=== PATIENT | female | born 1965 | race Hispanic/Latino ===

== ENCOUNTER 2025-02-11 06:56 | Observation (INO) | payer OTHER ==
[2025-02-09 11:56] LABS: IMMATURE GRANULOCYTE ABSOLUTE 0.02 K/uL (0-1); NUCLEATED RED BLOOD CELLS 0.0 % (0.0-0.19); PLATELET COUNT (AUTO) 297 K/uL (130-400); RED BLOOD CELL COUNT(AUTO) 4.70 MIL/uL (4.00-5.50); RED CELL DISTRIBUTION WIDTH 13.1 % (11.0-15.5); WHITE BLOOD COUNT (AUTO) 9.6 K/uL (4.8-10.8)
[2025-02-09 12:00] LABS: APPEARANCE,URINE CLEAR (CLEAR); GLUCOSE, URINE (UA) NEGATIVE (NEGATIVE); LEUKOCYTE ESTERASE ,URINE 250 Leu/uL (NEGATIVE); NITRATE,URINE NEGATIVE (NEGATIVE); OCCULT BLOOD,URINE NEGATIVE (NEGATIVE)
[2025-02-09 12:12] LABS: ADD UA MICROSCOPIC YES
[2025-02-09 12:20] LABS: NON-SQUAMOUS EPITHELIAL CELL <1 /HPF (0-2); SQUAMOUS EPITHELIAL CELL,UR FEW /HPF (0-2)
[2025-02-09 12:24] VITALS: BP 129/79; PULSE 64; RESP 17; TEMP 97.3
[2025-02-09 12:38] LABS: INR 1.06 (0.85-1.15)
--- NOTE | 2025-02-10 16:45 | NUR ---
RE: LABS REPORTED UA/URINE CX RESULTS (<= 10,000 CFU) TO DR MONTERO. NO NEW ORDERS RECEIVED.
[~2025-02-11] VITALS: Ht 162.6 cm; Wt 103.6 kg
[2025-02-11] VITALS (26 sets, daily range): BP systolic 112–160; BP diastolic 62–94; PULSE 57–87; RESP 15–18; TEMP 97.1–98.3; O2SAT 97
[~2025-02-11 06:56] MED LIST: ASPI-1197 PO; BUPR-49 PO; CARB-305 OP; ERGO500093 PO; KETO-99 OP; LEVO150C5 PO; LISI10TA24 PO; LORA10TA7 PO; OMEP10CA5 PO
[2025-02-11] MEDS: LACTATED RINGERS 1000ML 1,000 ML IV ONE (07:02)
[2025-02-11] MEDS ORDERED: TRANEXAMIC ACID 1000MG/10ML ONE (07:29)
[2025-02-11] MEDS ORDERED: VANCOMYCIN 500MG+NS 100ML 100 ML IV ONE (07:29)
[2025-02-11] MEDS ORDERED: LIDOCAINE PF 100MG/5ML (2%) SYRINGE 5ML ONE (07:37)
[2025-02-11] MEDS ORDERED: MIDAZOLAM HCL 1 MG/ML 2ML VIAL ONE (07:38)
[2025-02-11] MEDS ORDERED: 0.9%NACL 10ML VIAL ONE (07:39)
--- NOTE | 2025-02-11 07:55 | OP ---
Operative Note: DATE OF PROCEDURE: 02/11/25 SURGEON: PHOEBE MONTERO MD SPINNER FRAME: [Lora Anderson and Sahara Ron, MANAGER CORPORATE COMMUNICATIONS's] ANESTHESIA: [General anesthesia plus regional block] ANESTHESIOLOGIST/WATER VALVE MECHANIC: [Isaac Gilbert WATER VALVE MECHANIC] PREOPERATIVE DIAGNOSIS: [Right knee osteoarthritis] POSTOPERATIVE DIAGNOSIS: [Same] IMPLANTS: [BIOMET VANGUARD. femur 67.5 Left PS, Tibia 75 Fix cruciate. Patella 34 X 9 asymmetric] PROCEDURE: [Right total knee arthroplasty] ESTIMATED BLOOD LOSS: [100 mL] INDICATIONS: [59-year-old female with a history of severe arthrosis of the right knee that has a longer responded to conservative treatment the patient is being admitted for a right total knee arthroplasty. Procedure understood, risks, benefits and possible complications and she agreed signed the consent form.] DESCRIPTION OF PROCEDURE: [After adequate general anesthesia was achieved and regional block obtained the left lower extremity was prepped and draped in the usual manner previous placement of the tourniquet in the proximal thigh. The extremity was then elevated and exsanguinated with an Esmarch bandage and the tourniquet inflated to 250 mmHg the Esmarch band been then removed. With the knee in flexion a longitudinal incision was then made in the anterior aspect through the skin followed by dissection of the subcutaneous tissue. A bone infusion needle was then inserted just medial to the tibial tuberosity and through this needle we injected into the bone a solution of normal saline 50 mL mixed with 500 mg of vancomycin. The needle was removed. A paramedian approach was then made with the Bovie cautery cutting through the quadriceps tendon, medial patellar retinaculum and patellar tendon retinaculum. The retropatellar tendon fat was then excised and the soft tissue elements of the tibia were elevated subperiosteally and retractors were applied medially and laterally . The anterior and posterior cruciate ligaments were resected. With the use of a drill a starting hole was made in the distal femur entering the intramedullary canal and then after removal of the drill an intramedullary guide was inserted with a 5 degree valgus block that touched the distal femur and to this the distal femoral cutting guide was then applied anteriorly and was secured to the distal femur with the use of pins. The intramedullary guide was then removed and with the use of the oscillating saw we proceeded to resect the distal femur removing the fragments and the guide. The femoral sizer was then applied distally and drill holes were made removing the sizer and the 4-in-1 cutting block was then inserted and the anterior, posterior and chamfer cuts were made removing the fragments and the block. The PS cutting guide was then inserted and the intercondylar cut was made removing the fragment and the guide. The posterior cruciate ligament retractor was then inserted posterior to the tibia and this was brought forward proceeding then to apply the external tibial alignment guide and secured the proximal cutting guide to the tibia with the use of pins. With the use of the oscillating saw the proximal cut to the tibia tibia was made. The bone fragment was removed and the trial tibia plate was chosen. At this point the menisci were removed sharply and with the use of the curved osteotome the posterior osteophytes of the femur were removed. The trial components were then inserted at the femur and tibia with a trial tibial liner bringing the knee into extension noticing that the patient had a very stable knee in flexion, extension and with valgus and varus stress. The knee was maintained in extension and the patella was then addressed proceeding to measure its thickness and then with the use of the oscillating saw we removed 9 mm from the articular surface and restored the height with application of a trial component after 3 peg holes were made. The patellofemoral ligament was removed and then the patellofemoral tracking was checked noticing to be lateralized and a lateral release was done, bringing the tracking back to normal. At this moment all the components were removed, the tibia after the metaphyseal defect was created and while cement was being mixed on the back table we proceeded to irrigate the joint with antibiotic solution and then cover the entry to the femoral canal with a bone plug. Once the cement was ready we proceeded to apply it first to the tibia surface inserting the final component and then to the femoral surface and inserted the final component removing the excess cement and then applying a trial liner bringing the knee into extension for compression. Then we proceeded to irrigate the patella surface and dried it applying then bone cement and the final patellar component was inserted and was secured with application of a clamp. The joint was irrigated with a warm diluted Betadine solution while the cement dried followed by irrigation with antibiotic solution. The trial liner was removed as well as the patellar clamp and we proceeded then to irrigate the posterior aspect of the joint to remove all the remaining debris and the final tibial liner was inserted and locked against the tibia. The range of motion was checked and noticed to be adequate with full extension and flexion, no laxity in valgus or varus stress and with adequate patellofemoral tracking. The patient had no anterior or posterior drawer. The tourniquet was then deflated and this was followed by hemostasis and the wound was then closed with approximation of the quadriceps tendon, patellar retinaculum and patellar tendon retinaculum with #1 Vicryl close stitches alternating with #1 Ethibond stitches, and closure of the subcutaneous tissue with 2-0 Monocryl inverted stit ches and the skin was closed with 3-0 Monocryl subcuticularly. The wound was covered with a suction dressing followed by application of an Jluis bandage for compression and the drapes were then removed transferring the patient to the hospital bed and taken to recovery room for follow-up by anesthesia. There were no complications during the procedure.] PHOEBE MONTERO MD Feb 11, 2025 07:54
[2025-02-11] MEDS: TRANEXAMIC ACID 1000MG/10ML IV ONE (08:12)
[2025-02-11] MEDS ORDERED: PoTASSium chloRIDE 20MEQ ER 20 MEQ ERTAB PO PRN (09:00)
[2025-02-11] MEDS ORDERED: PoTASSium chl 10% ELIXIR 20MEQ 20 MEQ/15 ML UDCUP PO PRN (09:00)
[2025-02-11] MEDS ORDERED: CALCIUM CARB 500MG PO PRN (09:00)
[2025-02-11] MEDS ORDERED: FERROUS FUMARATE 324 MG TABLET PO PRN (09:00)
[2025-02-11] MEDS ORDERED: NEOSTIGMINE METHYLSULFATE 1MG/ML IV ONE (10:06)
[2025-02-11] MEDS ORDERED: GLYCOPYRROLATE 0.2 MG/ML 5 ML VIAL ONE (10:06)
[2025-02-11] MEDS: TRANEXAMIC ACID 1000MG/10ML ONE (10:51)
--- NOTE | 2025-02-11 12:00 | NUR ---
PATIENT ARRIVED AT 1135 , AWAKE ALERT, C/O OF PAIN TO LEFT KNEE SCORE OF 10 , PAIN MEDICATION GIVEN PER MD PRN ORDER , ICE APPLIED TO AREA, PHYSICAL THERAPY WAS NOTIFIED OF ARRIVAL . CALL LIGHT WITHIN REACH , FAMILY MEMBER AT BEDSIDE
--- NOTE | 2025-02-11 14:00 | NUR ---
PT approached patient for evaluation. Pt had ice but no SCD machine. PT provided. pt voided in BSC and is a max transfer at time of eval, unable to take steps even to chair. Nurse aware.
[2025-02-11] MEDS: FAMOTIDINE 20MG TAB PO SCH (14:17)
[2025-02-11] MEDS: 0.9%NACL 1000ML 1,000 ML IV SCH (14:18)
--- NOTE | 2025-02-11 16:30 | NUR ---
Ortho Coordinator: Teaching regarding DVT and pneumonia prevention, pain expectations and pain management. Patient in bed, B SCD sleeves in place and functioning. Incentive spirometer on bedside tray. Patient return demonstrated proper use of incentive spirometer and verbalized proper frequency of use. Patient return demonstrated foot flexion and extension exercises. Rationale provided for both exercises. Patient had surgery in July on other knee. Pain management strategy reviewed. Patient encouraged to perform self pain evaluations. Patient reminded she must call out for medication using the numeric pain score and type of pain, rationale provided. Set expectations for shower tomorrow, rationale provided. Patient electing to discharge home with home health. Reviewed home health process, next steps. Questions answered. 1640 Report to primary care team, strategies discussed.
--- NOTE | 2025-02-11 19:34 | NUR ---
PER PATIENT STATED REQUESTED ON USE OF PURWICK FOR TONIGHT , DISCUSSED THE USE OF PURWICK WITH PHYSICAL THERAPY AND ORTHO COORDINATOR PER PATIENT . PER PT NOTES AND CURRENT STATUS OF LEG UNDER AND UNABLE TO AMBULATE DUE TO LEG ASLEEP DUE TO BLOCK , PATIENT NOT SAFE TO GET UP AN AMBULATE TO BATHROOM WITH ASSISTANCE AT THIS TIME . PATIENT WITH PURWICK TEMPORARY AT THIS TIME
[2025-02-11] MEDS: ASPIRIN 81 MG EC TAB PO SCH (20:52)
[2025-02-12 03:09] VITALS: BP 111/64; PULSE 67; RESP 20; TEMP 98.6
[2025-02-12 03:52] LABS: NUCLEATED RED BLOOD CELLS 0.0 % (0.0-0.19); PLATELET COUNT (AUTO) 275.0 K/uL (130-400); RED BLOOD CELL COUNT(AUTO) 4.09 MIL/uL (4.00-5.50); RED CELL DISTRIBUTION WIDTH 13.0 % (11.0-15.5); WHITE BLOOD COUNT (AUTO) 13.7 K/uL (4.8-10.8)
[2025-02-12 04:05] LABS: CREATININE 0.7 mg/dL (0.5-1.0); GLOMERULAR FILTR. RATE CALC 101.0 mL/min (>90); GLUCOSE,RANDOM 126.0 mg/dL (70-105); SODIUM SERUM 140.0 mmol/L (136-145); UREA NITROGEN, BLOOD 11.0 mg/dL (7-18)
[2025-02-12 08:00] VITALS: BP 108/57; PULSE 50; RESP 16; TEMP 98.2
--- NOTE | 2025-02-12 11:04 | PN ---
Ortho postop day one. This morning the patient is awake alert and oriented. Reporting adequate pain control. No acute distress. Stated that she did not walk yesterday because her leg was numb but is better this morning. Vital signs have been stable. Afebrile. Voiding on her own without difficulty. She has already passing gas but yet to have BM. Laboratory results reviewed. Operative findings discussed with the patient. Reinforced incentive spirometry. The Jluis bandage has been removed and the PICCO is flashing green. She has bilateral lower extremity SCD sleeves on. Ice to the extremity. She is pending physical therapy this morning. The patient has changed her mind from doing home health or skilled nurse facility and is wanting to do outpatient physical therapy at [facility]. I have discussed with the patient that we will go ahead and make arrangements to follow up with her in one week in our clinic to remove her dressing and we will go ahead and submit order for outpatient physical therapy at [facility]. The patient can likely be discharged after afternoon PT. she is going to need a prescription for a bedside commode. Patient already has a standard walker from previous surgery. Assessment: Status post left total knee arthroplasty. Plan: Continue with Dr. Larson TKA protocol and discharge planning. Follow up in clinic 1 week for dressing removal Vitals/Labs Vital Signs Date Time Temp Pulse Resp B/P (MAP) Pulse Ox O2 Delivery O2 Flow Rate FiO2 02/12/25 08:00 Room Air* 0 21 02/12/25 08:00 98.2 50 16 108/57 97 Laboratory Tests 02/12/25 03:20 Medications Current Medications Cefazolin Sodium 2 gm STK-MED ONCE .ROUTE; Start 02/11/25 at 07:02; Stop 02/11/25 at 07:02; Status DC Lactated Ringer's 1,000 ml @ As Directed STK-MED ONCE IV; Start 02/11/25 at 07:02; Stop 02/11/25 at 07:03; Status DC Tranexamic Acid 1,000 mg STK-MED ONCE .ROUTE; Start 02/11/25 at 07:29; Stop 02/11/25 at 07:29; Status DC Cefazolin Sodium 1 gm STK-MED ONCE .ROUTE; Start 02/11/25 at 07:29; Stop 02/11/25 at 07:29; Status DC Vancomycin HCl 100 ml @ As Directed STK-MED ONCE IV; Start 02/11/25 at 07:29; Stop 02/11/25 at 07:29; Status DC Lidocaine HCl 100 mg STK-MED ONCE .ROUTE; Start 02/11/25 at 07:37; Stop 02/11/25 at 07:38; Status DC Propofol 200 mg STK-MED ONCE IV; Start 02/11/25 at 07:38; Stop 02/11/25 at 07:38; Status DC Midazolam HCl 2 mg STK-MED ONCE .ROUTE; Start 02/11/25 at 07:38; Stop 02/11/25 at 07:38; Status DC Rocuronium [place] 50 mg STK-MED ONCE .ROUTE; Start 02/11/25 at 07:38; Stop 02/11/25 at 07:38; Status DC Fentanyl Citrate 100 mcg STK-MED ONCE .ROUTE; Start 02/11/25 at 07:38; Stop 02/11/25 at 07:39; Status DC Sodium Chloride 10 ml STK-MED ONCE .ROUTE; Start 02/11/25 at 07:39; Stop 02/11/25 at 07:39; Status DC Ropivacaine 150 mg STK-MED ONCE .ROUTE; Start 02/11/25 at 07:40; Stop 02/11/25 at 07:41; Status DC Ketamine HCl 50 mg STK-MED ONCE .ROUTE; Start 02/11/25 at 08:03; Stop 02/11/25 at 08:03; Status DC Sodium Chloride 1,000 ml @ 100 mls/hr Q10H IV Last administered on 02/11/25at 14:18; Start 02/11/25 at 09:00; Stop 02/12/25 at 08:59; Status DC Polyethylene Glycol 17 gm DAILY PO Last administered on 02/12/25at 08:17; Start 02/11/25 at 09:00; Stop 03/13/25 at 08:59 Bisacodyl 10 mg DAILY PRN RC; Start 02/14/25 at 09:00; Stop 03/16/25 at 08:59 Ketorolac Tromethamine 15 mg Q6H PRN IV Last administered on 02/11/25at 12:47; Start 02/11/25 at 09:00; Stop 02/16/25 at 08:59 Famotidine 20 mg DAILY PO Last administered on 02/12/25at 08:16; Start 02/11/25 at 09:00; Stop 03/13/25 at 08:59 Ferrous Fumarate 324 mg DAILY PRN PO; Start 02/11/25 at 09:00; Stop 03/13/25 at 08:59 Temazepam 15 mg HS PRN PO; Start 02/11/25 at 09:00; Stop 03/13/25 at 08:59 Ondansetron HCl 4 mg Q6H PRN IVP; Start 02/11/25 at 09:00; Stop 03/13/25 at 08:59 Calcium Carbonate 500 mg Q12H PRN PO; Start 02/11/25 at 09:00; Stop 03/13/25 at 08:59 Diphenhydramine HCl 25 mg Q6H PRN IVP; Start 02/11/25 at 09:00; Stop 03/13/25 at 08:59 Cefazolin Sodium 2 gm Q8H IVPB Last administered on 02/11/25at 20:52; Start 02/11/25 at 14:00; Stop 02/11/25 at 22:01; Status DC Potassium Chloride 100 ml @ 100 mls/hr AD PRN IV; Start 02/11/25 at 09:00; Stop 03/13/25 at 08:59 Potassium Chloride 20 meq AD PRN PO; Start 02/11/25 at 09:00; Stop 03/13/25 at 08:59 Potassium Chloride 20 meq AD PRN PO; Start 02/11/25 at 09:00; Stop 03/13/25 at 08:59 Oxycodone HCl 5 mg Q4H PRN PO Last administered on 02/12/25at 08:17; Start 02/11/25 at 09:00; Stop 02/18/25 at 08:59 Oxycodone HCl 10 mg Q4H PRN PO Last administered on 02/11/25at 16:54; Start 02/11/25 at 09:00; Stop 02/18/25 at 08:59 Tramadol HCl 50 mg Q6H PRN PO Last administered on 02/11/25at 14:17; Start 02/11/25 at 09:00; Stop 02/16/25 at 08:59 Acetaminophen 1,000 mg Q8H PO Last administered on 02/12/25at 08:17; Start 02/11/25 at 09:00; Stop 03/13/25 at 08:59 Aspirin 81 mg BID PO Last administered on 02/12/25at 08:16; Start 02/11/25 at 21:00; Stop 03/13/25 at 20:59 Tranexamic Acid 1,000 mg STK-MED ONCE IV Last administered on 02/11/25at 08:12; Start 02/11/25 at 08:12; Stop 02/11/25 at 09:12; Status DC Cefazolin Sodium 3 gm STK-MED ONCE IVPB Last administered on 02/11/25at 08:10; Start 02/11/25 at 08:10; Stop 02/11/25 at 09:12; Status DC Vancomycin HCl 500 mg STK-MED ONCE IJ Last administered on 02/11/25at 08:11; Start 02/11/25 at 08:11; Stop 02/11/25 at 09:12; Status DC Glycopyrrolate 1 mg STK-MED ONCE .ROUTE; Start 02/11/25 at 10:06; Stop 02/11/25 at 10:06; Status DC Neostigmine Methylsulfate 10 mg STK-MED ONCE IV; Start 02/11/25 at 10:06; Stop 02/11/25 at 10:07; Status DC Ketorolac Tromethamine 30 mg STK-MED ONCE .ROUTE; Start 02/11/25 at 10:16; Stop 02/11/25 at 10:16; Status DC Tranexamic Acid 1,000 mg STK-MED ONCE .ROUTE Last administered on 02/11/25at 10:51; Start 02/11/25 at 10:41; Stop 02/11/25 at 10:41; Status DC Fentanyl Citrate 100 mcg STK-MED ONCE .ROUTE Last administered on 02/11/25at 11:05; Start 02/11/25 at 10:52; Stop 02/11/25 at 10:54; Status DC FAIZAN MANRIQUE NP Feb 12, 2025 11:04
--- NOTE | 2025-02-12 11:34 | NUR ---
[facility] CM MET WITH PT THIS MORNING, INITIAL ASSESSMENT DONE. PATIENT IS INDEPENDENT PRIOR TO SURGERY, LIVES AT HOME WITH HER MOTHER, PT STATES SHE TAKES CARE OF HER MOTHER AT HOME. PATIENT HAS A WALKER, ROLLATOR WALKER, BEDSIDE COMMODE, CANE, CPAP THAT SHE DOESN'T USE BECAUSE IT'S UNCOMFORTABLE FOR HER INSTEAD SHE USES NOSE STRIPS, BPM. DENIES ANY OTHER EQUIPMENT/SERVICES. FEELS SAFE TO GO BACK HOME, STILL DRIVE, ARRANGES OWN NEEDS, SISTER ABLE TO ASSIST WITH TRANSPORTATION NECESSARY. DISCUSSED MD RECOMMENDATIONS FOR HOME W/ FOR PT, PT VERBALIZED SHE PREFERS TO GO TO THE [place] FOR OUTPATIENT PT INSTEAD HER HOUSE IS GOING TO BE RENOVATED ANY TIME NOW ONCE SHE RECEIVE [facility] FUNDING, ASKED PT IF HAS TRANPSORTATION TO GO BACK AND FORTH TO [place] FOR OPT PT VERBALIZED YES HER SISTER CAN ASSIST ALSO [facility] HAS TRANSPORTATION AVAILABLE IN CASE NEEDED. CONSENT SIGNED [facility]IV[facility] FOR OUTPATIENT [facility]. DR MONTERO UPDATED, UP TO MD TO DC PT HOME TODAY/TOMORROW. CM SENT REQUEST TO [facility] VIA SECURE FAX AND EMAIL, PENDING [facility] RESPONSE. [facility]. CM TO CONTINUE TO FOLLOW UP. Addendum: 02/12/25 at 1141 by JUANCARLOS JURADO LVN Amended: Links added.
[2025-02-12 12:00] VITALS: BP 107/60; PULSE 68; RESP 16; TEMP 97.8
[2025-02-12 16:00] VITALS: BP 139/77; PULSE 80; RESP 17; TEMP 97.7
--- NOTE | 2025-02-12 16:00 | NUR ---
Ortho Coordinator: Patient working with physical therapy. Teaching deferred.
--- NOTE | 2025-02-12 16:03 | NUR ---
CM NOTE: OPT APPROVED CM RECEIVED CALL FROM [facility], PER [facility] PT ALREADY HAS 15 PRE-APPROVED VISITS FOR OUTPATIENT PT [facility]. DR MONTERO UPDATED. PT SAFE TO DC ONCE MD CLEARED. CM TO CONTINUE TO FOLLOW UP.
[2025-02-12 20:00] VITALS: BP 119/64; PULSE 70; RESP 20; TEMP 97.6; O2SAT 94
[2025-02-13] VITALS: BP 120/67; PULSE 66; RESP 18; TEMP 97.6
[2025-02-13 04:00] VITALS: BP 115/67; PULSE 62; RESP 18; TEMP 97.6
[2025-02-13 08:15] VITALS: BP 132/86; PULSE 62; RESP 18; TEMP 97.9
[2025-02-13 09:50] VITALS: O2SAT 98
[2025-02-13 11:47] VITALS: BP 122/72; PULSE 69; RESP 18; TEMP 97.9
[2025-02-13] MEDS ORDERED: OXYC-38 PO (15:46)
[2025-02-13] MEDS ORDERED: ASPI-1197 PO (15:46)
[2025-02-13 15:50] VITALS: BP 122/72; PULSE 76; RESP 18; TEMP 98
--- NOTE | 2025-02-13 15:56 | DS ---
DISCHARGE SUMMARY [Date of admission: 02/11/2025 Date of discharge: 02/13/2025 Final diagnosis: Left Knee osteoarthritis Surgical procedures: Left total Knee arthroplasty on 02/11/2025 Summary of History and Physical: The patient is a 59 year-old female with history of severe arthrosis to the left knee that has been present for several years and has been treated conservatively with no longer adequate response to treatment. The patient is being admitted for a left total knee arthroplasty. Previous medical history: Hypertension, hypothyroidism, osteoarthritis, GERD Previous surgical history: Left knee meniscal repair, right knee meniscal repair, gastric sleeve, right total knee arthroplasty. Family history: Hypertension, osteoarthritis, cancer of the pancreas breast and kidney as well as long. Diabetes mellitus. Thyroid disorder Social history: Negative for use of tobacco or alcohol. Allergies: NKDA. Review of system: Negative on admission Hospital course: The patient was admitted and taken to the operating room for a total knee arthroplasty, procedure that went uneventful. Postoperatively the patient remained hemodynamically stable and afebrile. The patient received antibiotic and anticoagulation prophylaxis as per protocol. The patient was evaluated by physical therapy and started rehabilitation treatment with ambulation with the use of walker, weightbearing as tolerated, range of motion exercises and bed transfers. The patient was also evaluated by case management and arrangements were made for discharge. The patient tolerated diet well. On postop day #2 all the arrangements were completed and the patient was dismissed. Condition on discharge: Good Disposition: The patient will be dismissed home. Follow-up will be done at the office in one week for removal of the dressing. The patient is to continue with physical therapy and rehabilitation at [facility] which was arranged earlier and be ambulatory with the use of a walker, weightbearing as tolerated. Continue taking pain medication as instructed as well as anticoagulation prophylaxis. Continue with home medications also as instructed and continue with pre admission diet.] PHOEBE MONTERO MD Feb 13, 2025 15:56
--- NOTE | 2025-02-13 17:51 | NUR ---
DISCHARGE PATIENT DISCHARGED. PERIPHERAL IV DISCONTINUED. CATHETER INTACT. DISCHARGE INSTRUCTIONS GIVEN. PATIENT AWARE TO F/U WITH ORTHO CARE 03/03. PATIENT AWARE TO F[facility]U WITH [facility] FOR [facility]. PRESCRIPTIONS FAXED TO PHARMACY. DRESSING CLEAN DRY AND INTACT. PATIENT REPORTS PAIN 07/17. PATIENT TAKEN DOWN BY WHEELCHAIR.
== END 2025-02-13 18:00 | disposition home or self-care (01) ==
LOC: DAH 06:56 → DAHIP 06:57 → DAH 06:57 → 4AH 11:35
PROVIDERS: ADMIT Orthopaedic Surgery; ATTEND Orthopaedic Surgery
DX: M17.12 Unilateral primary osteoarthritis, left knee (principal); M25.562 Pain in left knee; I10 Essential (primary) hypertension; E03.9 Hypothyroidism, unspecified; K21.9 Gastro-esophageal reflux disease without esophagitis; R06.81 Apnea, not elsewhere classified; Z79.899 Other long term (current) drug therapy; Z98.890 Other specified postprocedural states
CPT/HCPCS: 84703; 85025; 85610; 87086; 81001; 36415 ×2; 87641; 27447; 96365; 96366; 96375; 64447; 88311; 88304; 97161; 97530 ×6; 96376; 80048; 85027; 97116 ×4; C1713 ×2; G0378 ×57; A4663; J7120 ×2; A4600; J0690 ×5; J3010 ×2; J3490 ×6; J2003; J2250; J2704; J1885 ×3; J2710; J2795; J3373 ×2; A9272; A4649 ×4; A4930 ×2; C1776; A5120; A4215; A4223 ×2; A4213; A4222; A4221; A4216